=== PATIENT | female | born 1955 | race African-American/Black ===

== ENCOUNTER 2017-06-28 18:17 | Inpatient (IN) | payer BC, OTHER ==
[~2017-06-28] VITALS: Ht 162.6 cm; Wt 81.1 kg
[2017-06-28] MEDS ORDERED: ASPirin 81 mg TAB PO ONE (18:45)
[2017-06-28] MEDS ORDERED: NITROGLYCERIN 0.4 MG SL TAB SL ONE (19:00)
[2017-06-28 19:01] LABS: Basophils # (auto) 0 uL; Basophils % (auto) 0.4 % (0.0-2.0); CONDITION Y; Eosinophils # (auto) 0.3 uL; Eosinophils % (auto) 2.7 % (0.0-7.0); Hematocrit 42.4 % (36.0-46.0); Hemoglobin 14.1 g/dL (12.2-16.2); Lymphocytes # (auto) 3.8 uL; Lymphocytes % (auto) 32.5 % (10.0-50.0); Mean Corpuscular Hemoglobin 29.1 pg (28.0-32.0); Mean Corpuscular Hgb Conc. 33.3 g/dL (32.0-36.0); Mean Corpuscular Volume 87.7 fL (80.0-100.0); Mean Platelet Volume 10.3 fL (7.4-10.4); Monocytes # (auto) 0.9 uL; Monocytes % (auto) 7.9 % (0.0-12.0); Neutrophils # (auto) 6.6 uL; Neutrophils % (auto) 56.5 % (37.0-80.0); Platelet Count (auto) 237 10^3/uL (140-450); Red Cell Distribution Width 14.1 % (11.6-16.0); White Blood Cell 11.7 10^3/uL (4.4-10.8)
[2017-06-28 19:12] LABS: INR 1.1 (0.9-1.15); Partial Thromboplastin Time 25.4 sec (22.64-33.71)
[2017-06-28 19:41] LABS: Albumin 3.1 g/dL (3.4-5.0); Alkaline Phosphatase 133 U/L (45-117); Anion Gap 12 (5-15); Aspartate Aminotransferase 59 U/L (15-37); BUN/Creatinine Ratio 10.2; Bilirubin, Total 0.5 mg/dL (0.2-1.0); Blood Urea Nitrogen 13 mg/dL (7-18); Carbon Dioxide 23 mmol/L (21-32); Chloride 105 mmol/L (98-107); GFR African American 54 mL/min; GFR Non-African American 45 mL/min; Glucose 87 mg/dL (74-106); Magnesium 2.2 mg/dL (1.6-2.6); Potassium 3.5 mmol/L (3.5-5.1); Sodium 140 mmol/L (136-145); Total Protein 8.5 g/dL (6.4-8.2)
[2017-06-28] MEDS ORDERED: SODIUM CHLORIDE 0.9% 1,000 ML IV ONE (20:00)
[2017-06-28] MEDS ORDERED: MORPHINE SULFATE 4 MG/ML SYRG IV ONE (20:30)
[2017-06-28] MEDS ORDERED: ONDANSETRON HCL 4 MG/2 ML VIAL IV ONE (20:30)
[2017-06-28 20:45] LABS: Urine Bilirubin Negative (Negative); Urine Blood 2+ /uL (Negative); Urine Color Yellow (Yellow); Urine Glucose Normal (Normal); Urine Ketone Negative (Negative); Urine Nitrite Negative (Negative); Urine RBC 15 /hpf (0 - 4); Urine Sperm PRESENT /hpf (None Seen); Urine Squamous Epithelial Cell MOD /hpf (<5); Urine WBC Clumps PRESENT /hpf (None Seen)
[2017-06-28] MEDS ORDERED: HYDROcodone-ACET 5/325MG TAB PO ONE (20:45)
[2017-06-28] MEDS ORDERED: LEVOFLOXACIN 500MG 100 ML IV ONE (21:15)
[2017-06-28] MEDS ORDERED: ONDANSETRON HCL 4 MG/2 ML VIAL IV PRN (23:00)
[2017-06-28] MEDS ORDERED: HYDROmorphone HCL 2 MG/ML VL IV PRN (23:00)
[2017-06-28] MEDS ORDERED: ACETAMINOPHEN 500 MG TAB PO PRN (23:00)
[2017-06-28] MEDS ORDERED: HYDROcodone-ACET 5/325MG TAB PO PRN (23:00)
[2017-06-28] MEDS ORDERED: NITROGLYCERIN 0.4 MG SL TAB SL PRN (23:00)
[2017-06-28] MEDS ORDERED: clonazePAM 0.5 MG TAB PO PRN (23:15)
[2017-06-28 23:54] LABS: Cholesterol 126 mg/dL (< 200); HDL Cholesterol 53 mg/dL (40-59); LDL Cholesterol 70 mg/dL (< 100); Triglycerides 105 mg/dL (< 150)
[2017-06-29] VITALS (8 sets, daily range): BP systolic 149–194; BP diastolic 76–106
[2017-06-29] MEDS ORDERED: hydrALAZINE HCL 20 MG/ML VL IV ONE (01:15)
[2017-06-29] MEDS ORDERED: ONDANSETRON HCL 4 MG/2 ML VIAL IV PRN (02:30)
[2017-06-29 05:48] LABS: Basophils # (auto) 0 uL; Basophils % (auto) 0.2 % (0.0-2.0); CONDITION Y; Eosinophils # (auto) 0 uL; Eosinophils % (auto) 0.4 % (0.0-7.0); Hematocrit 41.2 % (36.0-46.0); Hemoglobin 13.8 g/dL (12.2-16.2); Lymphocytes # (auto) 1.2 uL; Lymphocytes % (auto) 10.9 % (10.0-50.0); Mean Corpuscular Hemoglobin 29.4 pg (28.0-32.0); Mean Corpuscular Hgb Conc. 33.6 g/dL (32.0-36.0); Mean Corpuscular Volume 87.6 fL (80.0-100.0); Mean Platelet Volume 10.6 fL (7.4-10.4); Monocytes # (auto) 0.7 uL; Monocytes % (auto) 5.8 % (0.0-12.0); Neutrophils # (auto) 9.3 uL; Neutrophils % (auto) 82.7 % (37.0-80.0); Platelet Count (auto) 213 10^3/uL (140-450); Red Cell Distribution Width 13.9 % (11.6-16.0); White Blood Cell 11.3 10^3/uL (4.4-10.8)
[2017-06-29 06:15] LABS: Albumin 2.9 g/dL (3.4-5.0); Anion Gap 10 (5-15); Aspartate Aminotransferase 51 U/L (15-37); BUN/Creatinine Ratio 11.7; Blood Urea Nitrogen 13 mg/dL (7-18); Calcium 8.7 mg/dL (8.5-10.1); Carbon Dioxide 25 mmol/L (21-32); Chloride 107 mmol/L (98-107); GFR African American 64 mL/min; GFR Non-African American 53 mL/min; Glucose 119 mg/dL (74-106); Potassium 3.3 mmol/L (3.5-5.1); Sodium 142 mmol/L (136-145)
[2017-06-29 06:20] LABS: Alkaline Phosphatase 130 U/L (45-117); Bilirubin, Total 0.6 mg/dL (0.2-1.0); Total Protein 8.2 g/dL (6.4-8.2)
[2017-06-29] MEDS: hydrALAZINE HCL 25 MG TAB PO SCH ×3 (06:58→22:00)
[2017-06-29] MEDS: ASPirin 81 mg TAB PO SCH (09:45)
[2017-06-29] MEDS: PANTOPRAZOLE 40 MG TAB PO SCH ×2 (09:45→22:00)
[2017-06-29] MEDS: LEVOFLOXACIN 500MG 100 ML IV SCH (09:45)
[2017-06-29] MEDS: amLODIPine BESYLATE 5 MG TAB PO SCH (09:46)
[2017-06-29] MEDS ORDERED: LISINOPRIL 20 MG TAB PO ONE (10:30)
[2017-06-29] MEDS: ATORVASTATIN 20 MG TAB PO SCH (22:00)
[2017-06-29] MEDS: LISINOPRIL 20 MG TAB PO SCH (22:00)
[2017-06-30] MEDS ORDERED: PROMETHAZINE HCL 25 MG/ML 1ML IV PRN
[2017-06-30] MEDS ORDERED: hydrALAZINE HCL 20 MG/ML VL IV PRN
[2017-06-30] MEDS ORDERED: hydrALAZINE HCL 20 MG/ML VL IV ONE
[2017-06-30] MEDS: SODIUM CHLORIDE 0.9% 1,000 ML IV SCH ×3 (00:15→20:15)
[2017-06-30 05:09] VITALS: BP 142/88
[2017-06-30] MEDS: hydrALAZINE HCL 25 MG TAB PO SCH ×3 (06:00→22:00)
[2017-06-30 06:29] LABS: Basophils # (auto) 0.1 uL; Basophils % (auto) 0.5 % (0.0-2.0); CONDITION Y; Eosinophils # (auto) 0.1 uL; Eosinophils % (auto) 1.3 % (0.0-7.0); Hematocrit 41.1 % (36.0-46.0); Hemoglobin 13.7 g/dL (12.2-16.2); Lymphocytes # (auto) 1.8 uL; Lymphocytes % (auto) 15.9 % (10.0-50.0); Mean Corpuscular Hemoglobin 29.3 pg (28.0-32.0); Mean Corpuscular Hgb Conc. 33.2 g/dL (32.0-36.0); Mean Corpuscular Volume 88.1 fL (80.0-100.0); Monocytes # (auto) 0.5 uL; Monocytes % (auto) 4.9 % (0.0-12.0); Neutrophils # (auto) 8.5 uL; Neutrophils % (auto) 77.4 % (37.0-80.0); Platelet Count (auto) 191 10^3/uL (140-450); Red Cell Distribution Width 14.1 % (11.6-16.0)
[2017-06-30 07:14] LABS: Potassium 3.3 mmol/L (3.5-5.1)
[2017-06-30 07:31] LABS: BUN/Creatinine Ratio 13.7; Calcium 8.4 mg/dL (8.5-10.1)
[2017-06-30 08:00] VITALS: BP 153/91
[2017-06-30] MEDS: LEVOFLOXACIN 500MG 100 ML IV SCH (10:00)
[2017-06-30] MEDS: PANTOPRAZOLE 40 MG TAB PO SCH ×2 (11:02→22:24)
[2017-06-30] MEDS: LISINOPRIL 20 MG TAB PO SCH ×2 (11:02→22:00)
[2017-06-30] MEDS: ASPirin 81 mg TAB PO SCH (11:03)
[2017-06-30] MEDS: amLODIPine BESYLATE 5 MG TAB PO SCH (11:03)
[2017-06-30 12:00] VITALS: BP 183/95
[2017-06-30 13:28] VITALS: BP 101/45
[2017-06-30] MEDS ORDERED: POTASSIUM CHL 20 Meq TABLET PO ONE (13:45)
[2017-06-30] MEDS: SULFAMETHOX W/TRIMETH(800/160MG) DS TAB PO SCH ×2 (14:44→22:24)
[2017-06-30 17:27] VITALS: BP 96/53
[2017-06-30 22:00] VITALS: BP 112/52
[2017-06-30] MEDS: ATORVASTATIN 20 MG TAB PO SCH (22:24)
[2017-07-01] MEDS: hydrALAZINE HCL 25 MG TAB PO SCH ×2 (05:13→14:00)
[2017-07-01] MEDS: SODIUM CHLORIDE 0.9% 1,000 ML IV SCH (05:14)
[2017-07-01 06:22] VITALS: BP 117/58
[2017-07-01 07:31] LABS: Albumin 2.4 g/dL (3.4-5.0); Calcium 8.3 mg/dL (8.5-10.1); Potassium 3.7 mmol/L (3.5-5.1)
[2017-07-01 07:33] LABS: BUN/Creatinine Ratio 16.4
[2017-07-01 07:36] LABS: Bilirubin, Total 0.4 mg/dL (0.2-1.0)
[2017-07-01 07:38] LABS: Basophils # (auto) 0 uL; Basophils % (auto) 0.4 % (0.0-2.0); CONDITION Y; Eosinophils # (auto) 0.3 uL; Eosinophils % (auto) 2.9 % (0.0-7.0); Hematocrit 38.5 % (36.0-46.0); Hemoglobin 12.7 g/dL (12.2-16.2); Lymphocytes # (auto) 3.1 uL; Lymphocytes % (auto) 34.7 % (10.0-50.0); Mean Corpuscular Hemoglobin 29.2 pg (28.0-32.0); Mean Corpuscular Hgb Conc. 32.9 g/dL (32.0-36.0); Mean Corpuscular Volume 88.8 fL (80.0-100.0); Mean Platelet Volume 11.1 fL (7.4-10.4); Monocytes # (auto) 0.7 uL; Monocytes % (auto) 7.6 % (0.0-12.0); Neutrophils # (auto) 4.9 uL; Neutrophils % (auto) 54.4 % (37.0-80.0); Platelet Count (auto) 207 10^3/uL (140-450); Red Cell Distribution Width 14.2 % (11.6-16.0)
[2017-07-01 09:11] VITALS: BP 124/60
[2017-07-01] MEDS: ASPirin 81 mg TAB PO SCH (09:58)
[2017-07-01] MEDS: SULFAMETHOX W/TRIMETH(800/160MG) DS TAB PO SCH (09:58)
[2017-07-01] MEDS: amLODIPine BESYLATE 5 MG TAB PO SCH (09:59)
[2017-07-01] MEDS: PANTOPRAZOLE 40 MG TAB PO SCH (09:59)
[2017-07-01] MEDS: LISINOPRIL 20 MG TAB PO SCH (10:00)
[2017-07-01 13:04] VITALS: BP 110/54
[2017-07-01 13:30] VITALS: BP 137/67
== END 2017-07-01 14:45 | disposition home or self-care (01) | DRG 690 ==
LOC: ER 18:19 → TELE 18:20 → TELE-WESTW 06-29 00:25
PROVIDERS: ADMIT Nurse Practitioner Family; ATTEND Internal Medicine
DX: N39.0 Urinary tract infection, site not specified (principal); E44.0 Moderate protein-calorie malnutrition; N18.3 Chronic kidney disease, stage 3 (moderate); N12 Tubulo-interstitial nephritis, not specified as acute or chronic; R07.89 Other chest pain; I12.9 Hypertensive chronic kidney disease with stage 1 through stage 4 chronic kidney disease, or unspecified chronic kidney disease; K21.9 Gastro-esophageal reflux disease without esophagitis; J44.9 Chronic obstructive pulmonary disease, unspecified; F41.9 Anxiety disorder, unspecified; F17.210 Nicotine dependence, cigarettes, uncomplicated; G43.909 Migraine, unspecified, not intractable, without status migrainosus; Z68.30 Body mass index [BMI] 30.0-30.9, adult; Z80.3 Family history of malignant neoplasm of breast; Z80.49 Family history of malignant neoplasm of other genital organs; Z80.8 Family history of malignant neoplasm of other organs or systems; Z82.0 Family history of epilepsy and other diseases of the nervous system; Z82.49 Family history of ischemic heart disease and other diseases of the circulatory system; Z82.5 Family history of asthma and other chronic lower respiratory diseases; Z83.3 Family history of diabetes mellitus; Z88.5 Allergy status to narcotic agent; Z88.0 Allergy status to penicillin; Z88.8 Allergy status to other drugs, medicaments and biological substances; Z88.6 Allergy status to analgesic agent; Z91.041 Radiographic dye allergy status; Z90.710 Acquired absence of both cervix and uterus; Z90.89 Acquired absence of other organs
CPT/HCPCS: 36415; 71010; 74176; 76775; 80048; 80053; 80061; 81001; 82550; 83690; 83735; 84484; 85025; 85610; 85652; 85730; 86141; 87086; 93005; 96361; 96365; 96375; J1956; J2405